=== PATIENT | female | born 1945 | race Caucasian/White ===

== ENCOUNTER → 2016-11-07 | Outpatient (CLI) | payer MEDICARE ==
[~2016-11-07] MED LIST: GADOBUTROL 7.5 MMOL/7.5 ML VIAL IV ONE; LOSA25TA4 PO
--- NOTE | 2016-11-08 08:35 | KCIC ---
PROCEDURE MRI brain without and with contrast. HISTORY Occipital neuralgia on the right side, dull headache with shooting pains on the right side, symptoms for 7 months getting worse TECHNIQUE Multiplanar, multi sequential, pre and post-contrast MR imaging was performed of the head to include dedicated images of the internal auditory canals. Contrast: 5 cc Gadavist COMPARISON None FINDINGS There is mild motion degradation. Ventricles, sulci, cisterns are within normal limits in size and configuration for patient's age. There is no intra-axial mass effect, midline shift, extra-axial fluid collection, or nodular parenchymal or leptomeningeal enhancement. There is moderate T2 and FLAIR hyperintense signal abnormality of the antonio. There is very minimal T2 and FLAIR hyperintense signal abnormality of the supratentorial periventricular white matter, also a few scattered tiny foci of the deep white matter such as of the frontal lobes. There is no significant hemosiderin deposition of the brain parenchyma. There is preservation of the major arterial intracranial flow voids at the skull base. Left vertebral artery flow void is small in caliber. Mastoid air cells are aerated. There is negligible patchy ethmoid air cell mucosal thickening cerebellar tonsils are normal location. There is nonspecific mild heterogeneity of the marrow of non expanded clivus. There is no significant abnormality of the pituitary gland or pineal gland. There is no enhancing mass of the internal auditory canals or cerebellopontine angles. IMPRESSION There is moderate T2 and FLAIR hyperintense signal abnormality of the antonio, very minimally of the supratentorial white matter. Nonspecific findings may be due to chronic microvascular ischemic disease in a patient this age. There is no other significant intracranial abnormality. Electronically signed by: Jonny Bowman MD (Nov 08, 2016 08:33:44)
== END | disposition home or self-care (01) ==
LOC: KCIC MRI 15:51
PROVIDERS: ATTEND Otolaryngology
DX: M54.81 Occipital neuralgia (principal)
CPT/HCPCS: 70553; 82565; A9585

== ENCOUNTER → 2017-05-30 | Outpatient (CLI) | payer MEDICARE ==
[~2017-05-30] MED LIST changes: -GADOBUTROL 7.5 MMOL/7.5 ML VIAL IV ONE
--- NOTE | 2017-05-31 09:34 | KCIC ---
DATE: 05/31/2017 EXAM: MAMMO BALA SCREENING BILATERAL HISTORY: Routine screening COMPARISON: Please mammogram from 04/26/2016 and ultrasound of the right breast from 05/07/2016. FINDINGS: Breast Density: SCATTERED The breast parenchyma shows scattered fibroglandular densities. Breast parenchyma level B. The skin and nipples are within normal limits. Benign left breast calcifications. No suspicious calcifications, spiculated masses or areas of architectural distortion. Interparenchymal lymph node noted in the upper outer right breast. IMPRESSION: No mammographic evidence of malignancy. Stable mammogram. BI-RADS CATEGORY: 2 BENIGN FINDING(S) RECOMMENDED FOLLOW-UP: 12M 12 MONTH FOLLOW-UP PQRS compliance statement: Patient information was entered into a reminder system with a target due date 05/31/2018 for the next mammogram. Mammography is a sensitive method for finding small breast cancers, but it does not detect them all and is not a substitute for careful clinical examination. A negative mammogram does not negate a clinically suspicious finding and should not result in delay in biopsying a clinically suspicious abnormality. "Our facility is accredited by the [employer] Mammography Program."
== END | disposition home or self-care (01) ==
LOC: KCIC MAMMO 12:13
PROVIDERS: ATTEND Obstetrics & Gynecology
DX: Z12.31 Encounter for screening mammogram for malignant neoplasm of breast (principal)
CPT/HCPCS: 77063; G0202; 77067

== ENCOUNTER 2019-06-22 01:26 | Inpatient (IN) | payer MEDICARE ==
[~2019-06-22] VITALS: Ht 152.4 cm; Wt 52.0 kg
[2019-06-22] VITALS (12 sets, daily range): BP systolic 109–144; BP diastolic 56–75
[~2019-06-22 01:26] MED LIST changes: -LOSA25TA4 PO; +LOSA25TA54 PO
[2019-06-22 01:50] LABS: BASO # 0.1 x10^3/uL (0.0-0.2); BASO % 1 % (0-3); EOS # 0.1 x10^3/uL (0.0-0.7); EOS % 1 % (0-3); HEMATOCRIT 46.8 % (36.0-47.0); HEMOGLOBIN 16.1 g/dL (12.0-15.5); LYMPH # 1.6 x10^3/uL (1.0-4.8); LYMPH % 15 % (24-48); MEAN CORPUSCULAR HEMOGLOBIN 33 pg (25-35); MEAN CORPUSCULAR HGB CONC 34 g/dL (31-37); MEAN CORPUSCULAR VOLUME 95 fL (79-100); MONO # 0.6 x10^3/uL (0.0-1.1); MONO % 6 % (0-9); NEUT % 78 % (31-73); PLATELET COUNT 234 x10^3/uL (140-400); RED BLOOD COUNT 4.95 x10^6/uL (3.50-5.40); RED CELL DISTRIBUTION WIDTH 13.5 % (11.5-14.5); WHITE BLOOD COUNT 10.3 x10^3/uL (4.0-11.0)
[2019-06-22 01:56] LABS: BILIRUBIN,URINE NEGATIVE (NEG); CLARITY,URINE CLEAR; COLOR,URINE YELLOW; NITRITE,URINE NEGATIVE (NEG); PROTEIN,URINE NEGATIVE (NEG-TRACE); UROBILINOGEN,URINE 0.2 mg/dL (0.2 mg/dL)
[2019-06-22 02:00] LABS: BACTERIA,URINE 0 /HPF (0-FEW); RBC,URINE 0 /HPF (0-2)
[2019-06-22] MEDS ORDERED: FAMOTIDINE 20 MG/2 ML VIAL IVP ONE (02:00)
[2019-06-22] MEDS ORDERED: KETOROLAC 15 MG/ML VIAL. IVP ONE (02:00)
[2019-06-22] MEDS ORDERED: ONDANSETRON PF 4 MG/2 ML VIAL. IVP ONE (02:00)
[2019-06-22] MEDS ORDERED: IV NORMAL SALINE 1000ML BAG 1,000 ML IV ONE ×2 (02:00→05:00)
[2019-06-22 02:01] LABS: HYALINE CASTS, URINE FEW /HPF; SQUAMOUS EPITHELIAL CELL,UR FEW /LPF
[2019-06-22 02:01] LABS: CALCIUM 10.5 mg/dL (8.5-10.1); CREATININE 0.8 mg/dL (0.6-1.0); GFR 70.5; POTASSIUM 4.1 mmol/L (3.5-5.1)
[2019-06-22 02:09] LABS: ALBUMIN 4.2 g/dL (3.4-5.0); ALBUMIN/GLOBULIN RATIO 1.2 (1.0-1.7); TOTAL BILIRUBIN 1.1 mg/dL (0.2-1.0); TOTAL PROTEIN 7.8 g/dL (6.4-8.2)
[2019-06-22] MEDS ORDERED: CONTRAST GIVEN. MC PRN (02:30)
[2019-06-22] MEDS ORDERED: IOHEXOL 240 MG/ML 50ML VIAL. PO ONE (03:00)
[2019-06-22] MEDS ORDERED: IOHEXOL 300 MG/ML 100ML VIAL. IV ONE (03:00)
--- NOTE | 2019-06-22 03:25 | PHYS DOC ---
Past Medical History Past Medical History: Hypertension Past Surgical History: Tubal ligation Smoking: Cigarettes Alcohol Use: Occasionally Drug Use: None Adult General Chief Complaint Chief Complaint: ABDOMINAL PAIN HPI HPI 73-year-old female presents with right lower abdominal pain and bloating which seems to occur yesterday evening. Patient reports some associated nausea. Denies trauma. Denies fever or chills. Patient reports pain is worse with standing and with ambulation. Reports some improvement with rest. Reports last PO at approximately 1830 last night. Review of Systems Review of Systems Constitutional: Denies fever or chills Eyes: Denies redness or eye pain HENT: Denies nasal congestion or sore throat Respiratory: Denies cough or shortness of breath Cardiovascular: Denies chest pain or palpitations GI: Reports abdominal pain and nausea; denies vomiting : Denies dysuria or hematuria Musculoskeletal: Denies back pain or joint pain Integument: Denies rash or skin lesions Neurologic: Denies headache, focal weakness or sensory changes Complete systems were reviewed and found to be within normal limits, except as documented in this note. Current Medications Current Medications Current Medications Medications (Trade) Dose Ordered Sig/Marlee Start Time Stop Time Status Last Admin Dose Admin Famotidine (Pepcid Vial) 20 mg 1X ONCE 06/22/19 02:00 06/22/19 02:01 DC 06/22/19 02:00 20 MG Info (CONTRAST GIVEN -- Rx MONITORING) 1 each PRN DAILY PRN 06/22/19 02:30 06/24/19 02:29 Iohexol (Omnipaque 240 Mg/ml) 50 ml 1X ONCE 06/22/19 03:00 06/22/19 03:01 DC Iohexol (Omnipaque 300 Mg/ml) 75 ml 1X ONCE 06/22/19 03:00 06/22/19 03:01 Cancel Ketorolac Tromethamine (Toradol 15mg Vial) 10 mg 1X ONCE 06/22/19 02:00 06/22/19 02:01 DC 06/22/19 02:01 10 MG Ondansetron HCl (Zofran) 4 mg 1X ONCE 06/22/19 02:00 06/22/19 02:01 DC 06/22/19 02:01 4 MG Sodium Chloride 1,000 ml @ 1,000 mls/hr 1X ONCE 06/22/19 02:00 06/22/19 02:59 DC 06/22/19 01:58 1,000 MLS/HR Allergies Allergies Allergies Coded Allergies Type Severity Reaction Last Updated Verified No Known Drug Allergies 11/07/16 No Physical Exam Physical Exam Constitutional: Well developed, well nourished, no acute distress, non-toxic appearance HENT: Normocephalic, atraumatic, oropharynx moist Eyes: Conjunctiva normal, no discharge Neck: Normal range of motion, no tenderness, supple Cardiovascular: Heart rate normal, regular rhythm Lungs & Thorax: Bilateral breath sounds clear to auscultation, no wheezing Abdomen: Soft, RLQ tenderness, McBurney positive. negative Psoas sign, no rebound tenderness, mild distention Skin: Warm, dry, no erythema, no rash Back: No tenderness, no CVA tenderness Extremities: No tenderness, ROM intact, no edema Neurologic: Alert and oriented X 3, normal motor function, normal sensory function, no focal deficits noted Psychologic: Affect normal, judgement normal Current Patient Data Vital Signs Vital Signs Date Time Temp Pulse Resp B/P (MAP) Pulse Ox O2 Delivery O2 Flow Rate FiO2 06/22/19 02:30 71 16 172/77 (108) 96 Room Air 06/22/19 02:14 97.8 97.8 Lab Values Laboratory Tests Test 06/22/19 01:31 06/22/19 01:40 Urine Collection Type Unknown Urine Color Yellow Urine Clarity Clear Urine pH 6.0 Urine Specific [place] 1.015 Urine Protein Negative mg/dL (NEG-TRACE) Urine Glucose (UA) Negative mg/dL (NEG) Urine Ketones (Stick) 15 mg/dL (NEG) Urine Blood Negative (NEG) Urine Nitrite Negative (NEG) Urine Bilirubin Negative (NEG) Urine Urobilinogen Dipstick 0.2 mg/dL (0.2 mg/dL) Urine Leukocyte Esterase Trace (NEG) Urine RBC 0 /HPF (0-2) Urine WBC 1-4 /HPF (0-4) Urine Squamous Epithelial Cells Few /LPF Urine Bacteria 0 /HPF (0-FEW) Urine Hyaline Casts Few /HPF Urine Mucus Mod /LPF White Blood Count 10.3 x10^3/uL (4.0-11.0) Red Blood Count 4.95 x10^6/uL (3.50-5.40) Hemoglobin 16.1 g/dL (12.0-15.5) H Hematocrit 46.8 % (36.0-47.0) Mean Corpuscular Volume 95 fL (79-100) Mean Corpuscular Hemoglobin 33 pg (25-35) Mean Corpuscular Hemoglobin Concent 34 g/dL (31-37) Red Cell Distribution Width 13.5 % (11.5-14.5) Platelet Count 234 x10^3/uL (140-400) Neutrophils (%) (Auto) 78 % (31-73) H Lymphocytes (%) (Auto) 15 % (24-48) L Monocytes (%) (Auto) 6 % (0-9) Eosinophils (%) (Auto) 1 % (0-3) Basophils (%) (Auto) 1 % (0-3) Neutrophils # (Auto) 8.0 x10^3/uL (1.8-7.7) H Lymphocytes # (Auto) 1.6 x10^3/uL (1.0-4.8) Monocytes # (Auto) 0.6 x10^3/uL (0.0-1.1) Eosinophils # (Auto) 0.1 x10^3/uL (0.0-0.7) Basophils # (Auto) 0.1 x10^3/uL (0.0-0.2) Sodium Level 144 mmol/L (136-145) Potassium Level 4.1 mmol/L (3.5-5.1) Chloride Level 105 mmol/L (98-107) Carbon Dioxide Level 31 mmol/L (21-32) Anion Gap 8 (6-14) Blood Urea Nitrogen 16 mg/dL (7-20) Creatinine 0.8 mg/dL (0.6-1.0) Estimated GFR (Cockcroft-Gault) 70.5 BUN/Creatinine Ratio 20 (6-20) Glucose Level 113 mg/dL (70-99) H Lactic Acid Level 0.9 mmol/L (0.4-2.0) Calcium Level 10.5 mg/dL (8.5-10.1) H Total Bilirubin 1.1 mg/dL (0.2-1.0) H Aspartate Amino Transferase (AST) 13 U/L (15-37) L Alanine Aminotransferase (ALT) 19 U/L (14-59) Alkaline Phosphatase 81 U/L (46-116) Total Protein 7.8 g/dL (6.4-8.2) Albumin 4.2 g/dL (3.4-5.0) Albumin/Globulin Ratio 1.2 (1.0-1.7) Lipase 134 U/L (73-393) Laboratory Tests 06/22/19 01:40 Laboratory Tests 06/22/19 01:40 EKG EKG [] Radiology/Procedures Radiology/Procedures PROCEDURE: CT ABD PEL W/ORAL CONTRST ONLY Abdominal and Pelvis CT, Without Contrast: History: Right lower quadrant pain Comparison: None. Procedure: Axial images are obtained of the abdomen and pelvis, without IV or oral contrast. Oral Contrast: Yes Findings: Evaluation of solid organs is limited without contrast. Evaluation of stomach and bowel is limited without oral contrast. The appendix is dilated to 8 mm and does not opacify with oral contrast. Contrast however is seen in the colon to the splenic flexure. Liver: Normal. Spleen: Normal. Pancreas: Normal. Adrenal Glands: Mild thickening of the left adrenal is likely incidental. Kidneys: Prominence the renal pelvises bilaterally is likely extrarenal pelvises. There are small bilateral renal cysts as well. There is no free air or free fluid. There is no lymphadenopathy. The urinary bladder appears normal. There is no pericolonic inflammation identified. Impression: Mildly dilated appendix without opacification with oral contrast. Findings suggest early acute appendicitis. Clinical correlation is suggested. The appendix is seen inferior to the cecum in the lower pelvis just to the right of the dome of the urinary bladder. End impression PQRS Compliance Statement: One or more of the following individualized dose reduction techniques were utilized for this examination: 1. Automated exposure control 2. Adjustment of the mA and/or kV according to patient size 3. Use of iterative reconstruction technique Electronically signed by: Vazquez Thompson III, MD (06/22/2019 4:06 AM) [facility] Course & Med Decision Making Course & Med Decision Making Pertinent Labs and Imaging studies reviewed. (See chart for details) Patient presents with right lower quadrant abdominal pain with associated nausea. Last by mouth at 1830 yesterday evening. Pain/nausea addressed. IV fluid hydration provided. Labs obtained and posted to chart. CT abdomen/pelvis with findings concerning for acute appendicitis. Empiric antibiotic initiated. Patient requiring admission for further evaluation and treatment. Discussed case with Dr. Hodge (general surgery) who requests admission under hospitalist. Discussed with Dr. Cotto (hospitalist) who is in agreement with admission. Discussed findings and plan with patient and family, who acknowledge understanding and agreement. Dragon Disclaimer Dragon Disclaimer This electronic medical record was generated, in whole or in part, using a voice recognition dictation system. Departure Departure Impression: Primary Impression: Acute appendicitis Disposition: ADMITTED INPATIENT Admitting Physician: DAPHNIE (Kirti) Condition: STABLE Referrals: CONCETTA HAMMER MD (PCP) Critical Care Time Critical care time was 30 minutes which includes time at bedside, spent in discussion of patient's care with specialists and/or family members, with interpretation of laboratory and/or radiological studies and is exclusive of procedures. Problem Qualifiers Primary Impression: Acute appendicitis Acute appendicitis type: unspecified acute appendicitis type Qualified Codes: K35.80 - Unspecified acute appendicitis NEEL GRAY DO Jun 22, 2019 03:25
--- NOTE | 2019-06-22 04:10 | RAD ---
Abdominal and Pelvis CT, Without Contrast: History: Right lower quadrant pain Comparison: None. Procedure: Axial images are obtained of the abdomen and pelvis, without IV or oral contrast. Oral Contrast: Yes Findings: Evaluation of solid organs is limited without contrast. Evaluation of stomach and bowel is limited without oral contrast. The appendix is dilated to 8 mm and does not opacify with oral contrast. Contrast however is seen in the colon to the splenic flexure. Liver: Normal. Spleen: Normal. Pancreas: Normal. Adrenal Glands: Mild thickening of the left adrenal is likely incidental. Kidneys: Prominence the renal pelvises bilaterally is likely extrarenal pelvises. There are small bilateral renal cysts as well. There is no free air or free fluid. There is no lymphadenopathy. The urinary bladder appears normal. There is no pericolonic inflammation identified. Impression: Mildly dilated appendix without opacification with oral contrast. Findings suggest early acute appendicitis. Clinical correlation is suggested. The appendix is seen inferior to the cecum in the lower pelvis just to the right of the dome of the urinary bladder. End impression PQRS Compliance Statement: One or more of the following individualized dose reduction techniques were utilized for this examination: 1. Automated exposure control 2. Adjustment of the mA and/or kV according to patient size 3. Use of iterative reconstruction technique Electronically signed by: Vazquez Thompson III, MD (06/22/2019 4:06 AM) [facility]
[2019-06-22] MEDS ORDERED: ONDANSETRON PF 4 MG/2 ML VIAL. IV PRN ×2 (04:30→08:30)
[2019-06-22] MEDS ORDERED: PIPERACILLIN/TAZOBACTAM 3.375 GM in IV NORMAL SALINE 50ML 50 ML IV ONE ×2 (05:00→13:30)
[2019-06-22] MEDS: fentaNYL PF VIAL 100 MCG/2 ML VIAL IV PRN ×3 (05:40→10:46)
[2019-06-22] MEDS ORDERED: LOSA1TAB25 PO (05:58)
--- NOTE | 2019-06-22 08:11 | PDOC2 ---
GENEVA LAM REHABILITATION TEACHER 06/22/19 0811: CONSULT Date of Consult Date of Consult DATE: 06/22/19 TIME: 08:08 Reason for Consult Reason for Consult: acute appendicitis Referring Physician Referring Physician: ER Identification/Chief Complaint Chief Complaint abdominal pain Source Source: Chart review, Patient History of Present Illness Reason for Visit: Acute onset of lower abdominal pain yesterday evening. Settled to RLQ, feels like bladder pain. Does radiate to right flank. Associated nausea. No constipation or diarrhea. No similar pain in past Past Medical History Cardiovascular: HTN Past Surgical History Past Surgical History: No pertinent history Family History Family History: Other (noncontributory to current illness ) Social History 1 pack per day ALCOHOL: social Drugs: None Lives: with Family Current Problem List Problem List Problems Medical Problems: (1) Acute appendicitis Status: Acute Current Medications Current Medications Current Medications Sodium Chloride 1,000 ml @ 1,000 mls/hr 1X ONCE IV Last administered on 06/22/19at 01:58; Start 06/22/19 at 02:00; Stop 06/22/19 at 02:59; Status DC Ketorolac Tromethamine (Toradol 15mg Vial) 10 mg 1X ONCE IVP Last administered on 06/22/19at 02:01; Start 06/22/19 at 02:00; Stop 06/22/19 at 02:01; Status DC Ondansetron HCl (Zofran) 4 mg 1X ONCE IVP Last administered on 06/22/19at 02:01; Start 06/22/19 at 02:00; Stop 06/22/19 at 02:01; Status DC Famotidine (Pepcid Vial) 20 mg 1X ONCE IVP Last administered on 06/22/19at 02:00; Start 06/22/19 at 02:00; Stop 06/22/19 at 02:01; Status DC Iohexol (Omnipaque 240 Mg/ml) 50 ml 1X ONCE PO ; Start 06/22/19 at 03:00; Stop 06/22/19 at 03:01; Status DC Iohexol (Omnipaque 300 Mg/ml) 75 ml 1X ONCE IV ; Start 06/22/19 at 03:00; Stop 06/22/19 at 03:01; Status Cancel Info (CONTRAST GIVEN -- Rx MONITORING) 1 each PRN DAILY PRN MC SEE COMMENTS; Start 06/22/19 at 02:30; Stop 06/24/19 at 02:29 Ondansetron HCl (Zofran) 4 mg PRN Q8HRS PRN IV NAUSEA/VOMITING 1ST CHOICE; Start 06/22/19 at 04:30; Stop 06/23/19 at 04:29 Fentanyl Citrate (Fentanyl 2ml Vial) 50 mcg PRN Q2HRS PRN IV SEVERE PAIN 7-10 Last administered on 06/22/19at 05:40; Start 06/22/19 at 04:30 Sodium Chloride 1,000 ml @ 100 mls/hr 1X ONCE IV Last administered on 06/22/19at 05:40; Start 06/22/19 at 05:00; Stop 06/22/19 at 14:59 Piperacillin Sod/ Tazobactam Sod 3.375 gm/Sodium Chloride 50 ml @ 100 mls/hr 1X ONCE IV Last administered on 06/22/19at 06:02; Start 06/22/19 at 05:00; Stop 06/22/19 at 05:29; Status DC Active Scripts Active Reported Losartan-Hctz 100-12.5 Mg Tab (Losartan/Hydrochlorothiazide) 1 Each Tablet 1 Tab PO DAILY Allergies Allergies: Coded Allergies: No Known Drug Allergies (Unverified , 06/22/19) ROS General: No: Chills, Other (fevers ) PSYCHOLOGICAL ROS: No: Anxiety, Depression Eyes: No Blurry vision HEENT: No: Heacaches, Sore Throat Hematological and Lymphatic: No: Bleeding Problems, Blood Clots Respiratory: No: Cough, Shortness of breath Cardiovascular: No Chest Pain, No Palpitations Gastrointestinal: Yes Other (see hpi) Genitourinary: No Dysuria, No Hematuria Musculoskeletal: No Muscular Weakness Neurological: No Impaired Coord/balance, No Numbness/Tingling Skin: No Pruritus, No Rash Physical Exam General: Alert, Oriented X3, Cooperative, No acute distress HEENT: PERRLA, Mucous membr. moist/pink Lungs: Clear to auscultation, Normal air movement Heart: Regular rate, Normal S1, Normal S2, No murmurs Abdomen: Soft, Other (TTP RLQ) Extremities: No clubbing, No cyanosis Skin: No rashes, No breakdown Neuro: Normal gait, Normal speech Psych/Mental Status: Mental status NL, Mood NL MUSCULOSKELETAL: No deformity, No swelling Vitals VITALS Vital Signs Date Time Temp Pulse Resp B/P (MAP) Pulse Ox O2 Delivery O2 Flow Rate FiO2 06/22/19 04:55 97.9 76 18 131/75 (93) 96 Room Air 97.9 Labs Labs Laboratory Tests Test 06/22/19 01:31 06/22/19 01:40 Urine Collection Type Unknown Urine Color Yellow Urine Clarity Clear Urine pH 6.0 Urine Specific [place] 1.015 Urine Protein Negative mg/dL (NEG-TRACE) Urine Glucose (UA) Negative mg/dL (NEG) Urine Ketones (Stick) 15 mg/dL (NEG) Urine Blood Negative (NEG) Urine Nitrite Negative (NEG) Urine Bilirubin Negative (NEG) Urine Urobilinogen Dipstick 0.2 mg/dL (0.2 mg/dL) Urine Leukocyte Esterase Trace (NEG) Urine RBC 0 /HPF (0-2) Urine WBC 1-4 /HPF (0-4) Urine Squamous Epithelial Cells Few /LPF Urine Bacteria 0 /HPF (0-FEW) Urine Hyaline Casts Few /HPF Urine Mucus Mod /LPF White Blood Count 10.3 x10^3/uL (4.0-11.0) Red Blood Count 4.95 x10^6/uL (3.50-5.40) Hemoglobin 16.1 g/dL (12.0-15.5) Hematocrit 46.8 % (36.0-47.0) Mean Corpuscular Volume 95 fL (79-100) Mean Corpuscular Hemoglobin 33 pg (25-35) Mean Corpuscular Hemoglobin Concent 34 g/dL (31-37) Red Cell Distribution Width 13.5 % (11.5-14.5) Platelet Count 234 x10^3/uL (140-400) Neutrophils (%) (Auto) 78 % (31-73) Lymphocytes (%) (Auto) 15 % (24-48) Monocytes (%) (Auto) 6 % (0-9) Eosinophils (%) (Auto) 1 % (0-3) Basophils (%) (Auto) 1 % (0-3) Neutrophils # (Auto) 8.0 x10^3/uL (1.8-7.7) Lymphocytes # (Auto) 1.6 x10^3/uL (1.0-4.8) Monocytes # (Auto) 0.6 x10^3/uL (0.0-1.1) Eosinophils # (Auto) 0.1 x10^3/uL (0.0-0.7) Basophils # (Auto) 0.1 x10^3/uL (0.0-0.2) Sodium Level 144 mmol/L (136-145) Potassium Level 4.1 mmol/L (3.5-5.1) Chloride Level 105 mmol/L (98-107) Carbon Dioxide Level 31 mmol/L (21-32) Anion Gap 8 (6-14) Blood Urea Nitrogen 16 mg/dL (7-20) Creatinine 0.8 mg/dL (0.6-1.0) Estimated GFR (Cockcroft-Gault) 70.5 BUN/Creatinine Ratio 20 (6-20) Glucose Level 113 mg/dL (70-99) Lactic Acid Level 0.9 mmol/L (0.4-2.0) Calcium Level 10.5 mg/dL (8.5-10.1) Total Bilirubin 1.1 mg/dL (0.2-1.0) Aspartate Amino Transf (AST/SGOT) 13 U/L (15-37) Alanine Aminotransferase (ALT/SGPT) 19 U/L (14-59) Alkaline Phosphatase 81 U/L (46-116) Total Protein 7.8 g/dL (6.4-8.2) Albumin 4.2 g/dL (3.4-5.0) Albumin/Globulin Ratio 1.2 (1.0-1.7) Lipase 134 U/L (73-393) Laboratory Tests Test 06/22/19 01:31 06/22/19 01:40 Urine Collection Type Unknown Urine Color Yellow Urine Clarity Clear Urine pH 6.0 Urine Specific [place] 1.015 Urine Protein Negative mg/dL (NEG-TRACE) Urine Glucose (UA) Negative mg/dL (NEG) Urine Ketones (Stick) 15 mg/dL (NEG) Urine Blood Negative (NEG) Urine Nitrite Negative (NEG) Urine Bilirubin Negative (NEG) Urine Urobilinogen Dipstick 0.2 mg/dL (0.2 mg/dL) Urine Leukocyte Esterase Trace (NEG) Urine RBC 0 /HPF (0-2) Urine WBC 1-4 /HPF (0-4) Urine Squamous Epithelial Cells Few /LPF Urine Bacteria 0 /HPF (0-FEW) Urine Hyaline Casts Few /HPF Urine Mucus Mod /LPF White Blood Count 10.3 x10^3/uL (4.0-11.0) Red Blood Count 4.95 x10^6/uL (3.50-5.40) Hemoglobin 16.1 g/dL (12.0-15.5) Hematocrit 46.8 % (36.0-47.0) Mean Corpuscular Volume 95 fL (79-100) Mean Corpuscular Hemoglobin 33 pg (25-35) Mean Corpuscular Hemoglobin Concent 34 g/dL (31-37) Red Cell Distribution Width 13.5 % (11.5-14.5) Platelet Count 234 x10^3/uL (140-400) Neutrophils (%) (Auto) 78 % (31-73) Lymphocytes (%) (Auto) 15 % (24-48) Monocytes (%) (Auto) 6 % (0-9) Eosinophils (%) (Auto) 1 % (0-3) Basophils (%) (Auto) 1 % (0-3) Neutrophils # (Auto) 8.0 x10^3/uL (1.8-7.7) Lymphocytes # (Auto) 1.6 x10^3/uL (1.0-4.8) Monocytes # (Auto) 0.6 x10^3/uL (0.0-1.1) Eosinophils # (Auto) 0.1 x10^3/uL (0.0-0.7) Basophils # (Auto) 0.1 x10^3/uL (0.0-0.2) Sodium Level 144 mmol/L (136-145) Potassium Level 4.1 mmol/L (3.5-5.1) Chloride Level 105 mmol/L (98-107) Carbon Dioxide Level 31 mmol/L (21-32) Anion Gap 8 (6-14) Blood Urea Nitrogen 16 mg/dL (7-20) Creatinine 0.8 mg/dL (0.6-1.0) Estimated GFR (Cockcroft-Gault) 70.5 BUN/Creatinine Ratio 20 (6-20) Glucose Level 113 mg/dL (70-99) Lactic Acid Level 0.9 mmol/L (0.4-2.0) Calcium Level 10.5 mg/dL (8.5-10.1) Total Bilirubin 1.1 mg/dL (0.2-1.0) Aspartate Amino Transf (AST/SGOT) 13 U/L (15-37) Alanine Aminotransferase (ALT/SGPT) 19 U/L (14-59) Alkaline Phosphatase 81 U/L (46-116) Total Protein 7.8 g/dL (6.4-8.2) Albumin 4.2 g/dL (3.4-5.0) Albumin/Globulin Ratio 1.2 (1.0-1.7) Lipase 134 U/L (73-393) Assessment/Plan Assessment/Plan acute appendicitis plan lap appy today KATHLEEN CLARK MD 06/22/19 1442: CONSULT Assessment/Plan Assessment/Plan Pt seen and examined by myself: 73 year old female with abdominal pain beginning yesterday, started in RLQ, non radiation, some associated nausea, no vomiting, nonradiating. PMH/PSH/ROS/SH as above: exam: alert, oriented, mildly uncomfortable, no scleral icterus, lungs clear, heart RR and R, abdomen soft, tender in RLQ with palpation, no masses, extremities neg for edema; labs and CT reviewed. A/P) RLQ pain, suspect appendicitis, recommend laparoscopy. The details and risks of surgery were discussed with the patient. She understands and would like to proceed. GENEVA LAM APRN Jun 22, 2019 08:11 KATHLEEN CLARK MD Jun 22, 2019 14:42
[2019-06-22] MEDS ORDERED: IV RINGERS,LACTATED 1000ML 1,000 ML IV SCH (08:23)
[2019-06-22] MEDS ORDERED: HYDROmorphone 2 MG/ML VIAL IV PRN (08:30)
[2019-06-22] MEDS ORDERED: PROCHLORPERAZINE 10 MG/2 ML VIAL. IV PRN ×2 (08:30→12:45)
[2019-06-22] MEDS ORDERED: BUPIVACAINE-EPI 0.5%-1:200000 MPF 30 ML VIAL. INJ ONE (08:30)
[2019-06-22] MEDS ORDERED: fentaNYL PF VIAL 100 MCG/2 ML VIAL IV PRN ×2 (08:30)
[2019-06-22] MEDS ORDERED: SCOPOLAMINE 1.5MG PATCH. TD ONE ×2 (09:00→12:51)
--- NOTE | 2019-06-22 09:20 | NUR ---
SW following for discharge planning. Chart reviewed, discussed with RN. Pt is from home with , [place] [address] [place] so is very active. Pt having surgery today. RN advised no SW needs at this time. SW will continue to follow.
[2019-06-22] MEDS ORDERED: LIDOCAINE 2% PF 5 ML VIAL. ONE (12:36)
[2019-06-22] MEDS ORDERED: PROPOFOL 20 ML IV ONE (12:36)
[2019-06-22] MEDS ORDERED: ONDANSETRON PF 4 MG/2 ML VIAL. ONE (12:36)
[2019-06-22] MEDS ORDERED: DEXAMETHASONE SOD PHOS 4 MG/ML VIAL ONE (12:36)
[2019-06-22] MEDS ORDERED: FAMOTIDINE 20 MG/2 ML VIAL ONE (12:36)
[2019-06-22] MEDS ORDERED: ROCURONIUM 50 MG/5 ML VIAL. ONE (12:36)
--- NOTE | 2019-06-22 12:47 | PDOC1 ---
History and Physical Date of Admission Date of Admission DATE: 06/22/19 TIME: 12:31 Identification/Chief Complaint Chief Complaint Abdominal pain Source Source: Patient History of Present Illness History of Present Illness Ms So is a 73-year-old female w/ PMHx HTN, smoker who presents with right lower abdominal pain and bloating which seems to occur yesterday evening. Patient reports some associated nausea. Denies trauma. Denies fever or chills. Patient reports pain is worse with standing and with ambulation. Reports some improvement with rest. Reports last PO at approximately 1830 last night. Pain radiates from umbilicus to RLQ. CT abdomen with concern for early appendicitis. Past Medical History Cardiovascular: HTN Past Surgical History Past Surgical History: Tubal Ligation Family History Family History: Coronary Artery Disease (Mother, Brother), Other (noncontributory to current illness ) Social History Smoke: 1 pack per day ALCOHOL: social Drugs: None Current Problem List Problem List Problems Medical Problems: (1) Acute appendicitis Status: Acute Current Medications Current Medications Current Medications Sodium Chloride 1,000 ml @ 1,000 mls/hr 1X ONCE IV Last administered on 06/22/19at 01:58; Start 06/22/19 at 02:00; Stop 06/22/19 at 02:59; Status DC Ketorolac Tromethamine (Toradol 15mg Vial) 10 mg 1X ONCE IVP Last administered on 06/22/19at 02:01; Start 06/22/19 at 02:00; Stop 06/22/19 at 02:01; Status DC Ondansetron HCl (Zofran) 4 mg 1X ONCE IVP Last administered on 06/22/19at 02:01; Start 06/22/19 at 02:00; Stop 06/22/19 at 02:01; Status DC Famotidine (Pepcid Vial) 20 mg 1X ONCE IVP Last administered on 06/22/19at 02:00; Start 06/22/19 at 02:00; Stop 06/22/19 at 02:01; Status DC Iohexol (Omnipaque 240 Mg/ml) 50 ml 1X ONCE PO ; Start 06/22/19 at 03:00; S top 06/22/19 at 03:01; Status DC Iohexol (Omnipaque 300 Mg/ml) 75 ml 1X ONCE IV ; Start 06/22/19 at 03:00; Stop 06/22/19 at 03:01; Status Cancel Info (CONTRAST GIVEN -- Rx MONITORING) 1 each PRN DAILY PRN MC SEE COMMENTS; Start 06/22/19 at 02:30; Stop 06/24/19 at 02:29 Ondansetron HCl (Zofran) 4 mg PRN Q8HRS PRN IV NAUSEA/VOMITING 1ST CHOICE Last administered on 06/22/19at 11:27; Start 06/22/19 at 04:30; Stop 06/23/19 at 04:29 Fentanyl Citrate (Fentanyl 2ml Vial) 50 mcg PRN Q2HRS PRN IV SEVERE PAIN 7-10 Last administered on 06/22/19at 10:46; Start 06/22/19 at 04:30 Sodium Chloride 1,000 ml @ 100 mls/hr 1X ONCE IV Last administered on 06/22/19at 05:40; Start 06/22/19 at 05:00; Stop 06/22/19 at 14:59 Piperacillin Sod/ Tazobactam Sod 3.375 gm/Sodium Chloride 50 ml @ 100 mls/hr 1X ONCE IV Last administered on 06/22/19at 06:02; Start 06/22/19 at 05:00; Stop 06/22/19 at 05:29; Status DC Ondansetron HCl (Zofran) 4 mg PRN Q6HRS PRN IV NAUSEA/VOMITING; Start 06/22/19 at 08:30; Stop 06/23/19 at 08:29 Fentanyl Citrate (Fentanyl 2ml Vial) 25 mcg PRN Q5MIN PRN IV MILD PAIN 1-3; Start 06/22/19 at 08:30; Stop 06/23/19 at 08:29 Fentanyl Citrate (Fentanyl 2ml Vial) 50 mcg PRN Q5MIN PRN IV MODERATE TO SEVERE PAIN; Start 06/22/19 at 08:30; Stop 06/23/19 at 08:29 Morphine Sulfate (Morphine Sulfate) 1 mg PRN Q10MIN PRN IV SEVERE PAIN 7-10; Start 06/22/19 at 08:30; Stop 06/23/19 at 08:29 Ringer's Solution 1,000 ml @ 30 mls/hr Q24H IV ; Start 06/22/19 at 08:23; Stop 06/22/19 at 20:22 Hydromorphone HCl (Dilaudid) 0.5 mg PRN Q10MIN PRN IV SEV PAIN, Second choice; Start 06/22/19 at 08:30; Stop 06/23/19 at 08:29 Prochlorperazine Edisylate (Compazine) 5 mg PACU PRN PRN IV NAUSEA, MRX1; Start 06/22/19 at 08:30; Stop 06/23/19 at 08:29 Bupivacaine HCl/ Epinephrine Bitart (Sensorcain-Epi 0.5%-1:[id number] Mpf) 30 ml 1X ONCE INJ ; Start 06/22/19 at 08:30; Stop 06/22/19 at 08:31; Status DC Active Scripts Active Reported Losartan-Hctz 100-12.5 Mg Tab (Losartan/Hydrochlorothiazide) 1 Each Tablet 1 Tab PO DAILY Allergies Allergies: Coded Allergies: No Known Drug Allergies (Unverified , 06/22/19) ROS General: YES: Fatigue, Malaise, Appetite; No: Chills, Night Sweats, Other PSYCHOLOGICAL ROS: No: Anxiety, Behavioral Disorder, Concentration difficultie, Decreased libido, Depression, Disorientation, Hallucinations, Hostility, Irritablity, Memory difficulties, Mood Swings, Obsessive thoughts, Physical abuse, Sexual abuse, Sleep disturbances, Suicidal ideation, Other Eyes: No Blurry vision, No Decreased vision, No Double vision, No Dry eyes, No Excessive tearing, No Eye Pain, No Itchy Eyes, No Loss of vision, No Photophobia, No Scotomata, No Uses contacts, No Uses glasses, No Other HEENT: No: Heacaches, Visual Changes, Hearing change, Nasal congestion, Nasal discharge, Oral lesions, Sinus pain, Sore Throat, Epistaxis, Sneezing, Snoring, Tinnitus, Vertigo, Vocal changes, Other ALLERGY AND IMMUNOLOGY: No: Hives, Insect Bite Sensitivity, Itchy/Watery Eyes, Nasal Congestion, Post Nasal Drip, Seasonal Allergies, Other Hematological and Lymphatic: No: Bleeding Problems, Blood Clots, Blood Transfusions, Brusing, Night Sweats, Pallor, Swollen Lymph Nodes, Other ENDOCRINE: No: Breast Changes, Galactorrhea, Hair Pattern Changes, Hot Flashes, Malaise/lethargy, Mood Swings, Palpitations, Polydipsia/polyuria, Skin Changes, Temperature Intolerance, Unexpected Weight Changes, Other Breast: No New/Changing Breast Lumps, No Nipple changes, No Nipple discharge, N o Other Respiratory: No: Cough, Hemoptysis, Orthopnea, Pleuritic Pain, Shortness of breath, SOB with excertion, Sputum Changes, Stridor, Tachypnea, Wheezing, Other Cardiovascular: No Chest Pain, No Palpitations, No Orthopnea, No Paroxysmal Noc. Dyspnea, No Edema, No Lt Headedness, No Other Gastrointestinal: Yes Nausea, Yes Vomiting, Yes Abdominal Pain; No Diarrhea, No Constipation, No Melena, No Hematochezia, No Other Genitourinary: No Dysuria, No Frequency, No Incontinence, No Hematuria, No Retention, No Discharge, No Urgency, No Pain, No Flank Pain, No Other, No , No , No , No , No , No , No Musculoskeletal: No Gait Disturbance, No Joint Pain, No Joint Stiffness, No Joint Swelling, No Muscle Pain, No Muscular Weakness, No Pain In:, No Swelling In:, No Other Neurological: No Behavorial Changes, No Bowel/Bladder ControlChng, No Confusion, No Dizziness, No Gait Disturbance, No Headaches, No Impaired Coord/balance, No Memory Loss, No Numbness/Tingling, No Seizures, No Speech Problems, No Tremors, No Visual Changes, No Weakness, No Other Skin: No Dry Skin, No Eczema, No Hair Changes, No Lumps, No Mole Changes, No Mottling, No Nail Changes, No Pruritus, No Rash, No Skin Lesion Changes, No Other, No Acne Physical Exam General: Alert, Oriented X3, Cooperative, No acute distress HEENT: Atraumatic, PERRLA, EOMI, Mucous membr. moist/pink Lungs: Clear to auscultation, Normal air movement Heart: S1S2, RRR, no thrills, no rubs, no gallops, no murmurs Abdomen: Normal bowel sounds, Soft, No hepatosplenomegaly, No masses, Other (RLQ pain) Rectal Exam: not examined Extremities: No clubbing, No cyanosis, No edema, Normal pulses, No tenderness/swelling Skin: No rashes, No breakdown, No significant lesion Neuro: Normal gait, Normal speech, Strength at 5/5 X4 ext, Normal tone, Sensation intact, Cranial nerves 3-12 NL, Reflexes 2+ Psych/Mental Status: Mental status NL, Mood NL Vitals Vitals Vital Signs Date Time Temp Pulse Resp B/P (MAP) Pulse Ox O2 Delivery O2 Flow Rate FiO2 06/22/19 11:16 94 06/22/19 10:46 Room Air 06/22/19 07:00 98.5 85 18 123/59 (80) 98.5 Labs Labs Laboratory Tests Test 06/22/19 01:31 06/22/19 01:40 Urine Collection Type Unknown Urine Color Yellow Urine Clarity Clear Urine pH 6.0 Urine Specific Mcintire 1.015 Urine Protein Negative mg/dL (NEG-TRACE) Urine Glucose (UA) Negative mg/dL (NEG) Urine Ketones (Stick) 15 mg/dL (NEG) Urine Blood Negative (NEG) Urine Nitrite Negative (NEG) Urine Bilirubin Negative (NEG) Urine Urobilinogen Dipstick 0.2 mg/dL (0.2 mg/dL) Urine Leukocyte Esterase Trace (NEG) Urine RBC 0 /HPF (0-2) Urine WBC 1-4 /HPF (0-4) Urine Squamous Epithelial Cells Few /LPF Urine Bacteria 0 /HPF (0-FEW) Urine Hyaline Casts Few /HPF Urine Mucus Mod /LPF White Blood Count 10.3 x10^3/uL (4.0-11.0) Red Blood Count 4.95 x10^6/uL (3.50-5.40) Hemoglobin 16.1 g/dL (12.0-15.5) Hematocrit 46.8 % (36.0-47.0) Mean Corpuscular Volume 95 fL (79-100) Mean Corpuscular Hemoglobin 33 pg (25-35) Mean Corpuscular Hemoglobin Concent 34 g/dL (31-37) Red Cell Distribution Width 13.5 % (11.5-14.5) Platelet Count 234 x10^3/uL (140-400) Neutrophils (%) (Auto) 78 % (31-73) Lymphocytes (%) (Auto) 15 % (24-48) Monocytes (%) (Auto) 6 % (0-9) Eosinophils (%) (Auto) 1 % (0-3) Basophils (%) (Auto) 1 % (0-3) Neutrophils # (Auto) 8.0 x10^3/uL (1.8-7.7) Lymphocytes # (Auto) 1.6 x10^3/uL (1.0-4.8) Monocytes # (Auto) 0.6 x10^3/uL (0.0-1.1) Eosinophils # (Auto) 0.1 x10^3/uL (0.0-0.7) Basophils # (Auto) 0.1 x10^3/uL (0.0-0.2) Sodium Level 144 mmol/L (136-145) Potassium Level 4.1 mmol/L (3.5-5.1) Chloride Level 105 mmol/L (98-107) Carbon Dioxide Level 31 mmol/L (21-32) Anion Gap 8 (6-14) Blood Urea Nitrogen 16 mg/dL (7-20) Creatinine 0.8 mg/dL (0.6-1.0) Estimated GFR (Cockcroft-Gault) 70.5 BUN/Creatinine Ratio 20 (6-20) Glucose Level 113 mg/dL (70-99) Lactic Acid Level 0.9 mmol/L (0.4-2.0) Calcium Level 10.5 mg/dL (8.5-10.1) Total Bilirubin 1.1 mg/dL (0.2-1.0) Aspartate Amino Transf (AST/SGOT) 13 U/L (15-37) Alanine Aminotransferase (ALT/SGPT) 19 U/L (14-59) Alkaline Phosphatase 81 U/L (46-116) Total Protein 7.8 g/dL (6.4-8.2) Albumin 4.2 g/dL (3.4-5.0) Albumin/Globulin Ratio 1.2 (1.0-1.7) Lipase 134 U/L (73-393) Laboratory Tests Test 06/22/19 01:31 06/22/19 01:40 Urine Collection Type Unknown Urine Color Yellow Urine Clarity Clear Urine pH 6.0 Urine Specific Mcintire 1.015 Urine Protein Negative mg/dL (NEG-TRACE) Urine Glucose (UA) Negative mg/dL (NEG) Urine Ketones (Stick) 15 mg/dL (NEG) Urine Blood Negative (NEG) Urine Nitrite Negative (NEG) Urine Bilirubin Negative (NEG) Urine Urobilinogen Dipstick 0.2 mg/dL (0.2 mg/dL) Urine Leukocyte Esterase Trace (NEG) Urine RBC 0 /HPF (0-2) Urine WBC 1-4 /HPF (0-4) Urine Squamous Epithelial Cells Few /LPF Urine Bacteria 0 /HPF (0-FEW) Urine Hyaline Casts Few /HPF Urine Mucus Mod /LPF White Blood Count 10.3 x10^3/uL (4.0-11.0) Red Blood Count 4.95 x10^6/uL (3.50-5.40) Hemoglobin 16.1 g/dL (12.0-15.5) Hematocrit 46.8 % (36.0-47.0) Mean Corpuscular Volume 95 fL (79-100) Mean Corpuscular Hemoglobin 33 pg (25-35) Mean Corpuscular Hemoglobin Concent 34 g/dL (31-37) Red Cell Distribution Width 13.5 % (11.5-14.5) Platelet Count 234 x10^3/uL (140-400) Neutrophils (%) (Auto) 78 % (31-73) Lymphocytes (%) (Auto) 15 % (24-48) Monocytes (%) (Auto) 6 % (0-9) Eosinophils (%) (Auto) 1 % (0-3) Basophils (%) (Auto) 1 % (0-3) Neutrophils # (Auto) 8.0 x10^3/uL (1.8-7.7) Lymphocytes # (Auto) 1.6 x10^3/uL (1.0-4.8) Monocytes # (Auto) 0.6 x10^3/uL (0.0-1.1) Eosinophils # (Auto) 0.1 x10^3/uL (0.0-0.7) Basophils # (Auto) 0.1 x10^3/uL (0.0-0.2) Sodium Level 144 mmol/L (136-145) Potassium Level 4.1 mmol/L (3.5-5.1) Chloride Level 105 mmol/L (98-107) Carbon Dioxide Level 31 mmol/L (21-32) Anion Gap 8 (6-14) Blood Urea Nitrogen 16 mg/dL (7-20) Creatinine 0.8 mg/dL (0.6-1.0) Estimated GFR (Cockcroft-Gault) 70.5 BUN/Creatinine Ratio 20 (6-20) Glucose Level 113 mg/dL (70-99) Lactic Acid Level 0.9 mmol/L (0.4-2.0) Calcium Level 10.5 mg/dL (8.5-10.1) Total Bilirubin 1.1 mg/dL (0.2-1.0) Aspartate Amino Transf (AST/SGOT) 13 U/L (15-37) Alanine Aminotransferase (ALT/SGPT) 19 U/L (14-59) Alkaline Phosphatase 81 U/L (46-116) Total Protein 7.8 g/dL (6.4-8.2) Albumin 4.2 g/dL (3.4-5.0) Albumin/Globulin Ratio 1.2 (1.0-1.7) Lipase 134 U/L (73-393) Images Images CT abdomen - Mildly dilated appendix without opacification with oral contrast. Findings suggest early acute appendicitis. Clinical correlation is suggested. The appendix is seen inferior to the cecum in the lower pelvis just to the right of the dome of the urinary bladder. VTE Prophylaxis Ordered VTE Prophylaxis Devices: Yes VTE Pharmacological Prophylaxi: Yes Assessment/Plan Assessment/Plan A/P: Abdominal pain - looks to be early appendicitis. Given empiric antibiotics, pain control. Surgery consulted. Only previously had a flex sig and has been using cologard. No colonoscopy previously. No further testing prior to appendectomy Hypercalcemia - 10.5. Will give IVF. Repeat labs in AM. Hold thiazide diuretic for now HTN - hold thiazide, cont losartan FEN - NPO PPX - lovenox post op FULL CODE Dispo - inpatient for acute appendicitis MIGUEL LYNN MD Jun 22, 2019 12:46
[2019-06-22] MEDS: LOSARTAN POTASSIUM 50 MG TABLET. PO SCH (13:00)
[2019-06-22] MEDS ORDERED: SUCCINYLCHOLINE 200 MG/10 ML VIAL. ONE (13:50)
[2019-06-22] MEDS ORDERED: ePHEDrine PF IN SALINE 50 MG/10 ML SYRINGE. IV ONE (14:07)
[2019-06-22] MEDS ORDERED: fentaNYL PF VIAL 100 MCG/2 ML VIAL ONE (14:13)
[2019-06-22] MEDS ORDERED: NEOSTIGMINE METHYLSULFATE 5 MG/5 ML SYRINGE. ONE (14:35)
[2019-06-22] MEDS ORDERED: GLYCOPYRROLATE 1 MG/5 ML VIAL. ONE (14:35)
--- NOTE | 2019-06-22 14:43 | PDOC4 ---
Operative Note Operative Note Preoperative Diagnosis: Acute Appendicitis Postoperative Diagnosis: Same Procedure: Laparoscopic appendectomy Surgeon: Francisco Anesthesia: Gen. EBL: 10 mL Specimen: Appendix to pathology Drains: None Complications: None Indication: The patient is a 81-year-old female who reported to the emergency department with abdominal pain. The evaluation is consistent with acute appendicitis. The patient was offered surgical treatment with a laparoscopic appendectomy. The risks of surgery were discussed which include bleeding, infection, visceral injury, pain, anesthetic risk, potential need for additional surgery or procedure. The patient understands and would like to proceed. Description: The patient was taken to the operating room and placed supine on the operating table. Gen. anesthesia was performed. The abdomen was prepped with ChloraPrep and draped in a standard surgical manner. A supraumbilical incision was made through which a veress needle was inserted and a pneumoperitoneum was created. A visualized 5 mm trocar was inserted and the laparoscope was intr oduced. In the left lower quadrant a 5 mm trocar was inserted. In the suprapubic region a 12 mm trocar was inserted. The appendix was identified and appeared inflamed consistent with acute appendicitis. There was no clear evidence of perforation or periappendiceal abscess. The mesoappendix was bluntly from the appendix. The mesoappendix was controlled using several clips and it was divided. The appendix was then amputated off the cecum using an Endo [id number] 45 stapling device. The appendix was then placed in an endoscopic bag and extracted at the suprapubic incision site. The fascia there was closed with 0 Vicryl and infiltrated with half percent Marcaine with epinephrine. The RLQ was visualized and the staple line appeared well intact and hemostasis was good. No other abnormalities were identified grossly. The remaining ports were removed and the pneumoperitoneum was relieved. The skin at all incision sites was closed with 4-0 Monocryl. Steri-Strips and dressings were applied. The patient tolerated the procedure well and was sent to the recovery room in stable condition. At the end of the case all counts were correct. KATHLEEN CLARK MD Jun 22, 2019 14:43
[2019-06-22] MEDS ORDERED: HYDROcodone/APAP 5/325MG 1 TAB TABLET PO PRN ×2 (14:45→14:49)
[2019-06-22] MEDS ORDERED: SEVOFLURANE 61 TO 120 MINUTES. IH ONE (14:54)
[2019-06-22] MEDS: MORPHINE SULFATE 2 MG/ML VIAL. IV PRN ×2 (15:38→15:50)
[2019-06-22] MEDS ORDERED: MORPHINE SULFATE 4 MG/ML VIAL. IV PRN (16:00)
[2019-06-22] MEDS ORDERED: ENOXAPARIN 40 MG/0.4 ML SYRINGE. SQ SCH (16:00)
--- NOTE | 2019-06-22 21:00 | NUR ---
at bedside. denies nausea she is rating her pain a "2" abdominal area. she is complaining of a sore throat --"8" ice is helping. she was given a pitcher of water, ice chips and saltines . lap site dressings have a moderate amount of drainage
[2019-06-23 03:02] VITALS: BP 111/60
[2019-06-23 07:00] VITALS: BP 125/61
--- NOTE | 2019-06-23 08:31 | PDOC ---
PROGRESS NOTES Chief Complaint Chief Complaint A/P: Abdominal pain - looks to be early appendicitis. Given empiric antibiotics, pain control. Surgery consulted. Only previously had a flex sig and has been using c ologard. No colonoscopy previously. S/p lap appendectomy on 06/22 Hypercalcemia - 10.5. Will give IVF. Repeat labs in AM. Hold thiazide diuretic for now HTN - hold thiazide, cont losartan FEN - NPO PPX - lovenox post op FULL CODE Dispo - inpatient for acute appendicitis History of Present Illness History of Present Illness Ms So is a 73-year-old female w/ PMHx HTN, smoker who presents with right lower abdominal pain and bloating which seems to occur yesterday evening. P atient reports some associated nausea. Denies trauma. Denies fever or chills. Patient reports pain is worse with standing and with ambulation. Reports some improvement with rest. Reports last PO at approximately 1830 last night. Pain radiates from umbilicus to RLQ. CT abdomen with concern for early appendicitis. S/p laparascopic appendectomy on 06/22/19. Feeling much better, ambulating, passing flatus. Pathology pending. She is anxious to leave. Pain much better today. Vitals Vitals Vital Signs Date Time Temp Pulse Resp B/P (MAP) Pulse Ox O2 Delivery O2 Flow Rate FiO2 06/23/19 07:00 97.6 68 18 125/61 (82) 96 Room Air 97.6 06/22/19 15:10 8 Physical Exam General: Alert, Oriented X3, Cooperative, No acute distress Heart: Regular rate, Normal S1, Normal S2, No murmurs Abdomen: Normal bowel sounds, Soft, No hepatosplenomegaly, No masses, Other Extremities: No clubbing, No cyanosis, No edema, Normal pulses, No tenderness/swelling Skin: No rashes, No breakdown, No significant lesion Assessment and Plan Assessmemt and Plan Problems Medical Problems: (1) Acute appendicitis Status: Acute Comment Review of Relevant I have reviewed the following items avis (where applicable) has been applied. Labs Laboratory Tests Test 06/22/19 01:31 06/22/19 01:40 Urine Collection Type Unknown Urine Color Yellow Urine Clarity Clear Urine pH 6.0 Urine Specific [place] 1.015 Urine Protein Negative mg/dL (NEG-TRACE) Urine Glucose (UA) Negative mg/dL (NEG) Urine Ketones (Stick) 15 mg/dL (NEG) Urine Blood Negative (NEG) Urine Nitrite Negative (NEG) Urine Bilirubin Negative (NEG) Urine Urobilinogen Dipstick 0.2 mg/dL (0.2 mg/dL) Urine Leukocyte Esterase Trace (NEG) Urine RBC 0 /HPF (0-2) Urine WBC 1-4 /HPF (0-4) Urine Squamous Epithelial Cells Few /LPF Urine Bacteria 0 /HPF (0-FEW) Urine Hyaline Casts Few /HPF Urine Mucus Mod /LPF White Blood Count 10.3 x10^3/uL (4.0-11.0) Red Blood Count 4.95 x10^6/uL (3.50-5.40) Hemoglobin 16.1 g/dL (12.0-15.5) Hematocrit 46.8 % (36.0-47.0) Mean Corpuscular Volume 95 fL (79-100) Mean Corpuscular Hemoglobin 33 pg (25-35) Mean Corpuscular Hemoglobin Concent 34 g/dL (31-37) Red Cell Distribution Width 13.5 % (11.5-14.5) Platelet Count 234 x10^3/uL (140-400) Neutrophils (%) (Auto) 78 % (31-73) Lymphocytes (%) (Auto) 15 % (24-48) Monocytes (%) (Auto) 6 % (0-9) Eosinophils (%) (Auto) 1 % (0-3) Basophils (%) (Auto) 1 % (0-3) Neutrophils # (Auto) 8.0 x10^3/uL (1.8-7.7) Lymphocytes # (Auto) 1.6 x10^3/uL (1.0-4.8) Monocytes # (Auto) 0.6 x10^3/uL (0.0-1.1) Eosinophils # (Auto) 0.1 x10^3/uL (0.0-0.7) Basophils # (Auto) 0.1 x10^3/uL (0.0-0.2) Sodium Level 144 mmol/L (136-145) Potassium Level 4.1 mmol/L (3.5-5.1) Chloride Level 105 mmol/L (98-107) Carbon Dioxide Level 31 mmol/L (21-32) Anion Gap 8 (6-14) Blood Urea Nitrogen 16 mg/dL (7-20) Creatinine 0.8 mg/dL (0.6-1.0) Estimated GFR (Cockcroft-Gault) 70.5 BUN/Creatinine Ratio 20 (6-20) Glucose Level 113 mg/dL (70-99) Lactic Acid Level 0.9 mmol/L (0.4-2.0) Calcium Level 10.5 mg/dL (8.5-10.1) Total Bilirubin 1.1 mg/dL (0.2-1.0) Aspartate Amino Transf (AST/SGOT) 13 U/L (15-37) Alanine Aminotransferase (ALT/SGPT) 19 U/L (14-59) Alkaline Phosphatase 81 U/L (46-116) Total Protein 7.8 g/dL (6.4-8.2) Albumin 4.2 g/dL (3.4-5.0) Albumin/Globulin Ratio 1.2 (1.0-1.7) Lipase 134 U/L (73-393) Medications Current Medications Sodium Chloride 1,000 ml @ 1,000 mls/hr 1X ONCE IV Last administered on 06/22/19at 01:58; Start 06/22/19 at 02:00; Stop 06/22/19 at 02:59; Status DC Ketorolac Tromethamine (Toradol 15mg Vial) 10 mg 1X ONCE IVP Last administered on 06/22/19at 02:01; Start 06/22/19 at 02:00; Stop 06/22/19 at 02:01; Status DC Ondansetron HCl (Zofran) 4 mg 1X ONCE IVP Last administered on 06/22/19at 02:01; Start 06/22/19 at 02:00; Stop 06/22/19 at 02:01; Status DC Famotidine (Pepcid Vial) 20 mg 1X ONCE IVP Last administered on 06/22/19at 02:00; Start 06/22/19 at 02:00; Stop 06/22/19 at 02:01; Status DC Iohexol (Omnipaque 240 Mg/ml) 50 ml 1X ONCE PO ; Start 06/22/19 at 03:00; Stop 06/22/19 at 03:01; Status DC Iohexol (Omnipaque 300 Mg/ml) 75 ml 1X ONCE IV ; Start 06/22/19 at 03:00; Stop 06/22/19 at 03:01; Status Cancel Info (CONTRAST GIVEN -- Rx MONITORING) 1 each PRN DAILY PRN MC SEE COMMENTS; Start 06/22/19 at 02:30; Stop 06/24/19 at 02:29 Ondansetron HCl (Zofran) 4 mg PRN Q8HRS PRN IV NAUSEA/VOMITING 1ST CHOICE Last administered on 06/22/19at 11:27; Start 06/22/19 at 04:30; Stop 06/23/19 at 04:29; Status DC Fentanyl Citrate (Fentanyl 2ml Vial) 50 mcg PRN Q2HRS PRN IV SEVERE PAIN 7-10 Last administered on 06/22/19at 10:46; Start 06/22/19 at 04:30; Stop 06/22/19 at 15:57; Status DC Sodium Chloride 1,000 ml @ 100 mls/hr 1X ONCE IV Last administered on 06/22/19at 05:40; Start 06/22/19 at 05:00; Stop 06/22/19 at 14:59; Status DC Piperacillin Sod/ Tazobactam Sod 3.375 gm/Sodium Chloride 50 ml @ 100 mls/hr 1X ONCE IV Last administered on 06/22/19at 06:02; Start 06/22/19 at 05:00; Stop 06/22/19 at 05:29; Status DC Ondansetron HCl (Zofran) 4 mg PRN Q6HRS PRN IV NAUSEA/VOMITING; Start 06/22/19 at 08:30; Stop 06/23/19 at 08:29; Status DC Fentanyl Citrate (Fentanyl 2ml Vial) 25 mcg PRN Q5MIN PRN IV MILD PAIN 1-3; Start 06/22/19 at 08:30; Stop 06/23/19 at 08:29; Status DC Fentanyl Citrate (Fentanyl 2ml Vial) 50 mcg PRN Q5MIN PRN IV MODERATE TO SEVERE PAIN; Start 06/22/19 at 08:30; Stop 06/23/19 at 08:29; Status DC Morphine Sulfate (Morphine Sulfate) 1 mg PRN Q10MIN PRN IV SEVERE PAIN 7-10 Last administered on 06/22/19at 15:50; Start 06/22/19 at 08:30; Stop 06/23/19 at 08:29; Status DC Ringer's Solution 1,000 ml @ 30 mls/hr Q24H IV ; Start 06/22/19 at 08:23; Stop 06/22/19 at 20:22; Status DC Hydromorphone HCl (Dilaudid) 0.5 mg PRN Q10MIN PRN IV SEV PAIN, Second choice; Start 06/22/19 at 08:30; Stop 06/23/19 at 08:29; Status DC Prochlorperazine Edisylate (Compazine) 5 mg PACU PRN PRN IV NAUSEA, MRX1; Start 06/22/19 at 08:30; Stop 06/23/19 at 08:29; Status DC Bupivacaine HCl/ Epinephrine Bitart (Sensorcain-Epi 0.5%-1:[id number] Mpf) 30 ml 1X ONCE INJ Last administered on 06/22/19at 14:09; Start 06/22/19 at 08:30; Stop 06/22/19 at 08:31; Status DC Prochlorperazine Edisylate (Compazine) 5 mg PRN Q6HRS PRN IV NAUSEA/VOMITING; Start 06/22/19 at 12:45 Propofol 20 ml @ As Directed STK-MED ONCE IV ; Start 06/22/19 at 12:36; Stop 06/22/19 at 12:37; Status DC Dexamethasone Sodium Phosphate (Decadron) 4 mg STK-MED ONCE .ROUTE ; Start 06/22/19 at 12:36; Stop 06/22/19 at 12:37; Status DC Famotidine (Pepcid Vial) 20 mg STK-MED ONCE .ROUTE ; Start 06/22/19 at 12:36; Stop 06/22/19 at 12:37; Status DC Lidocaine HCl (Lidocaine Pf 2% Vial) 5 ml STK-MED ONCE .ROUTE ; Start 06/22/19 at 12:36; Stop 06/22/19 at 12:37; Status DC Ondansetron HCl (Zofran) 4 mg STK-MED ONCE .ROUTE ; Start 06/22/19 at 12:36; Stop 06/22/19 at 12:37; Status DC Rocuronium [place] (Zemuron) 50 mg STK-MED ONCE .ROUTE ; Start 06/22/19 at 12:36; Stop 06/22/19 at 12:37; Status DC Losartan Potassium (Cozaar) 100 mg DAILY PO ; Start 06/22/19 at 13:00 Enoxaparin Sodium (Lovenox 40mg Syringe) 40 mg Q24H SQ ; Start 06/22/19 at 16:00 Scopolamine (Transderm-Scop) 1 patch STK-MED ONCE TD ; Start 06/22/19 at 12:51; Stop 06/22/19 at 12:52; Status DC Scopolamine (Transderm-Scop) 1 patch 1X ONCE TD Last administered on 06/22/19at 12:59; Start 06/22/19 at 09:00; Stop 06/22/19 at 12:57; Status DC Piperacillin Sod/ Tazobactam Sod 3.375 gm/Sodium Chloride 50 ml @ 100 mls/hr 1X ONCE IV ; Start 06/22/19 at 13:30; Stop 06/22/19 at 13:59; Status DC Succinylcholine Chloride (Anectine) 200 mg STK-MED ONCE .ROUTE ; Start 06/22/19 at 13:50; Stop 06/22/19 at 13:50; Status DC Ephedrine Sulfate (ePHEDrine PF IN SALINE SYRINGE) 50 mg STK-MED ONCE IV ; Start 06/22/19 at 14:07; Stop 06/22/19 at 14:07; Status DC Fentanyl Citrate (Fentanyl 2ml Vial) 100 mcg STK-MED ONCE .ROUTE ; Start 1 at 14:13; Stop 06/22/19 at 14:13; Status DC Glycopyrrolate (Robinul) 1 mg STK-MED ONCE .ROUTE ; Start 06/22/19 at 14:35; Stop 06/22/19 at 14:35; Status DC Neostigmine Methylsulfate (Neostigmine Methylsulfate) 5 mg STK-MED ONCE .ROUTE ; Start 06/22/19 at 14:35; Stop 06/22/19 at 14:35; Status DC Acetaminophen/ Hydrocodone Bitart (Lortab 5/325) 1 tab PRN Q4HRS PRN PO PAIN; Start 06/22/19 at 14:45; Stop 06/22/19 at 14:49; Status DC Acetaminophen/ Hydrocodone Bitart (Lortab 5/325) 2 tab PRN Q4HRS PRN PO PAIN; Start 06/22/19 at 14:49 Sevoflurane (Ultane) 60 ml STK-MED ONCE IH ; Start 06/22/19 at 14:54; Stop 06/22/19 at 14:54; Status DC Morphine Sulfate (Morphine Sulfate) 4 mg PRN Q2HR PRN IV PAIN; Start 06/22/19 at 16:00 Active Scripts Active Reported Losartan-Hctz 100-12.5 Mg Tab (Losartan/Hydrochlorothiazide) 1 Each Tablet 1 Tab PO DAILY Vitals/I & O Vital Sign - Last 24 Hours 06/22/19 06/22/19 06/22/19 06/22/19 08:39 10:46 11:00 11:16 Temp 97.9 97.9 Pulse 70 Resp 16 B/P (MAP) 144/62 (89) Pulse Ox 94 95 94 O2 Delivery Room Air Room Air 06/22/19 06/22/19 06/22/19 06/22/19 13:00 13:02 14:55 15:10 Temp 98.2 98.3 98.2 98.3 Pulse 74 80 90 82 Resp 15 16 16 B/P (MAP) 130/59 154/67 154/61 150/51 Pulse Ox 94 100 O2 Delivery Room Air Simple Mask Simple Mask O2 Flow Rate 8 8 06/22/19 06/22/19 06/22/19 06/22/19 15:25 15:38 15:40 15:50 Pulse 77 71 Resp 16 16 16 16 B/P (MAP) 146/68 144/60 Pulse Ox 94 95 94 95 O2 Delivery Room Air Room Air Room Air Room Air 06/22/19 06/22/19 06/22/19 06/22/19 16:10 16:20 16:25 16:40 Temp 97.5 97.5 Pulse 74 75 71 Resp 18 18 18 B/P (MAP) 130/59 (82) 133/58 (83) 130/56 (80) Pulse Ox 93 89 92 O2 Delivery Room Air Room Air Room Air Room Air 06/22/19 06/22/19 06/22/19 06/22/19 16:55 17:25 17:55 18:43 Pulse 74 71 74 76 Resp 18 18 18 18 B/P (MAP) 133/59 (83) 132/63 (86) 133/60 (84) 131/61 (84) Pulse Ox 94 94 93 96 O2 Delivery Room Air Room Air Room Air Room Air 06/22/19 06/22/19 06/22/19 06/23/19 19:30 20:00 23:00 03:02 Temp 97.5 98.4 98.2 97.5 98.4 98.2 Pulse 74 73 77 Resp 16 16 20 B/P (MAP) 121/62 (81) 109/58 (75) 111/60 (77) Pulse Ox 95 97 95 O2 Delivery Room Air Room Air 06/23/19 07:00 Temp 97.6 97.6 Pulse 68 Resp 18 B/P (MAP) 125/61 (82) Pulse Ox 96 O2 Delivery Room Air Intake and Output 06/22/19 06/22/19 06/23/19 15:00 23:00 07:00 Intake Total 750 ml 650 ml 700 ml Output Total 260 ml 50 ml 500 ml Balance 490 ml 600 ml 200 ml MIGUEL LYNN MD Jun 23, 2019 08:31
[2019-06-23 08:40] VITALS: BP 125/61
[2019-06-23] MEDS: LOSARTAN POTASSIUM 50 MG TABLET. PO SCH (08:40)
[2019-06-23] MEDS ORDERED: HYDR-2761 PO (09:29)
--- NOTE | 2019-06-23 09:37 | PDOC ---
SURGICAL PROGRESS NOTE Subjective tolerating diet right rib pain no n/v urinating ambulating Vital Signs Vital Signs Date Time Temp Pulse Resp B/P (MAP) Pulse Ox O2 Delivery O2 Flow Rate FiO2 06/23/19 08:40 68 125/61 06/23/19 07:00 97.6 18 96 Room Air 97.6 06/22/19 15:10 8 I&O Intake and Output 06/23/19 06:59 Intake Total 2100 ml Output Total 810 ml Balance 1290 ml Intake Oral 850 ml IV Total 1250 ml Output Urine Total 800 ml Estimated Blood Loss 10 ml # Voids 2 General: Alert, Oriented X3, Cooperative, No acute distress Abdomen: Soft, Other (lap dressings dry) Labs Laboratory Tests Test 06/22/19 01:31 06/22/19 01:40 Urine Collection Type Unknown Urine Color Yellow Urine Clarity Clear Urine pH 6.0 Urine Specific [place] 1.015 Urine Protein Negative mg/dL (NEG-TRACE) Urine Glucose (UA) Negative mg/dL (NEG) Urine Ketones (Stick) 15 mg/dL (NEG) Urine Blood Negative (NEG) Urine Nitrite Negative (NEG) Urine Bilirubin Negative (NEG) Urine Urobilinogen Dipstick 0.2 mg/dL (0.2 mg/dL) Urine Leukocyte Esterase Trace (NEG) Urine RBC 0 /HPF (0-2) Urine WBC 1-4 /HPF (0-4) Urine Squamous Epithelial Cells Few /LPF Urine Bacteria 0 /HPF (0-FEW) Urine Hyaline Casts Few /HPF Urine Mucus Mod /LPF White Blood Count 10.3 x10^3/uL (4.0-11.0) Red Blood Count 4.95 x10^6/uL (3.50-5.40) Hemoglobin 16.1 g/dL (12.0-15.5) Hematocrit 46.8 % (36.0-47.0) Mean Corpuscular Volume 95 fL (79-100) Mean Corpuscular Hemoglobin 33 pg (25-35) Mean Corpuscular Hemoglobin Concent 34 g/dL (31-37) Red Cell Distribution Width 13.5 % (11.5-14.5) Platelet Count 234 x10^3/uL (140-400) Neutrophils (%) (Auto) 78 % (31-73) Lymphocytes (%) (Auto) 15 % (24-48) Monocytes (%) (Auto) 6 % (0-9) Eosinophils (%) (Auto) 1 % (0-3) Basophils (%) (Auto) 1 % (0-3) Neutrophils # (Auto) 8.0 x10^3/uL (1.8-7.7) Lymphocytes # (Auto) 1.6 x10^3/uL (1.0-4.8) Monocytes # (Auto) 0.6 x10^3/uL (0.0-1.1) Eosinophils # (Auto) 0.1 x10^3/uL (0.0-0.7) Basophils # (Auto) 0.1 x10^3/uL (0.0-0.2) Sodium Level 144 mmol/L (136-145) Potassium Level 4.1 mmol/L (3.5-5.1) Chloride Level 105 mmol/L (98-107) Carbon Dioxide Level 31 mmol/L (21-32) Anion Gap 8 (6-14) Blood Urea Nitrogen 16 mg/dL (7-20) Creatinine 0.8 mg/dL (0.6-1.0) Estimated GFR (Cockcroft-Gault) 70.5 BUN/Creatinine Ratio 20 (6-20) Glucose Level 113 mg/dL (70-99) Lactic Acid Level 0.9 mmol/L (0.4-2.0) Calcium Level 10.5 mg/dL (8.5-10.1) Total Bilirubin 1.1 mg/dL (0.2-1.0) Aspartate Amino Transf (AST/SGOT) 13 U/L (15-37) Alanine Aminotransferase (ALT/SGPT) 19 U/L (14-59) Alkaline Phosphatase 81 U/L (46-116) Total Protein 7.8 g/dL (6.4-8.2) Albumin 4.2 g/dL (3.4-5.0) Albumin/Globulin Ratio 1.2 (1.0-1.7) Lipase 134 U/L (73-393) Problem List Problems Medical Problems: (1) Acute appendicitis Status: Acute Assessment/Plan s/p appy ok to al home Fu 2 weeks script e sent to pharmacy GENEVA LAM APRN Jun 23, 2019 09:36
--- NOTE | 2019-06-23 09:59 | PDOC3 ---
Discharge Summary Visit Information Date of Admission: Jun 22, 2019 Date of Discharge: Jun 23, 2019 Admitting Diagnosis: Acute appendicitis Final Diagnosis Problems Medical Problems: (1) Acute appendicitis Status: Acute Brief Hospital Course Allergies Allergies Coded Allergies Type Severity Reaction Last Updated Verified No Known Drug Allergies 06/22/19 No Vital Signs Vital Signs Date Time Temp Pulse Resp B/P (MAP) Pulse Ox O2 Delivery O2 Flow Rate FiO2 06/23/19 08:40 68 125/61 06/23/19 07:00 97.6 18 96 Room Air 97.6 06/22/19 15:10 8 Lab Results Laboratory Tests Test 06/22/19 01:31 06/22/19 01:40 Urine Collection Type Unknown Urine Color Yellow Urine Clarity Clear Urine pH 6.0 Urine Specific [place] 1.015 Urine Protein Negative mg/dL (NEG-TRACE) Urine Glucose (UA) Negative mg/dL (NEG) Urine Ketones (Stick) 15 mg/dL (NEG) Urine Blood Negative (NEG) Urine Nitrite Negative (NEG) Urine Bilirubin Negative (NEG) Urine Urobilinogen Dipstick 0.2 mg/dL (0.2 mg/dL) Urine Leukocyte Esterase Trace (NEG) Urine RBC 0 /HPF (0-2) Urine WBC 1-4 /HPF (0-4) Urine Squamous Epithelial Cells Few /LPF Urine Bacteria 0 /HPF (0-FEW) Urine Hyaline Casts Few /HPF Urine Mucus Mod /LPF White Blood Count 10.3 x10^3/uL (4.0-11.0) Red Blood Count 4.95 x10^6/uL (3.50-5.40) Hemoglobin 16.1 g/dL (12.0-15.5) Hematocrit 46.8 % (36.0-47.0) Mean Corpuscular Volume 95 fL (79-100) Mean Corpuscular Hemoglobin 33 pg (25-35) Mean Corpuscular Hemoglobin Concent 34 g/dL (31-37) Red Cell Distribution Width 13.5 % (11.5-14.5) Platelet Count 234 x10^3/uL (140-400) Neutrophils (%) (Auto) 78 % (31-73) Lymphocytes (%) (Auto) 15 % (24-48) Monocytes (%) (Auto) 6 % (0-9) Eosinophils (%) (Auto) 1 % (0-3) Basophils (%) (Auto) 1 % (0-3) Neutrophils # (Auto) 8.0 x10^3/uL (1.8-7.7) Lymphocytes # (Auto) 1.6 x10^3/uL (1.0-4.8) Monocytes # (Auto) 0.6 x10^3/uL (0.0-1.1) Eosinophils # (Auto) 0.1 x10^3/uL (0.0-0.7) Basophils # (Auto) 0.1 x10^3/uL (0.0-0.2) Sodium Level 144 mmol/L (136-145) Potassium Level 4.1 mmol/L (3.5-5.1) Chloride Level 105 mmol/L (98-107) Carbon Dioxide Level 31 mmol/L (21-32) Anion Gap 8 (6-14) Blood Urea Nitrogen 16 mg/dL (7-20) Creatinine 0.8 mg/dL (0.6-1.0) Estimated GFR (Cockcroft-Gault) 70.5 BUN/Creatinine Ratio 20 (6-20) Glucose Level 113 mg/dL (70-99) Lactic Acid Level 0.9 mmol/L (0.4-2.0) Calcium Level 10.5 mg/dL (8.5-10.1) Total Bilirubin 1.1 mg/dL (0.2-1.0) Aspartate Amino Transf (AST/SGOT) 13 U/L (15-37) Alanine Aminotransferase (ALT/SGPT) 19 U/L (14-59) Alkaline Phosphatase 81 U/L (46-116) Total Protein 7.8 g/dL (6.4-8.2) Albumin 4.2 g/dL (3.4-5.0) Albumin/Globulin Ratio 1.2 (1.0-1.7) Lipase 134 U/L (73-393) Brief Hospital Course Ms So is a 73-year-old female w/ PMHx HTN, smoker who presents with right lower abdominal pain and bloating which seems to occur yesterday evening. Patient reports some associated nausea. Denies trauma. Denies fever or chills. Patient reports pain is worse with standing and with ambulation. Reports some improvement with rest. Reports last PO at approximately 1830 last night. Pain radiates from umbilicus to RLQ. CT abdomen with concern for early appendicitis. S/p laparascopic appendectomy on 06/22/19. Feeling much better, ambulating, passing flatus. Pathology pending. She is anxious to leave. Pain much better today. 2 week f/u with surgery. Hydrocodone f or pain, will f/u pathology A/P: Abdominal pain - looks to be early appendicitis. Given empiric antibiotics, pain control. Surgery consulted. Only previously had a flex sig and has been using cologard. No colonoscopy previously. S/p lap appendectomy on 06/22 Hypercalcemia - 10.5. Will give IVF. Repeat labs in AM. Hold thiazide diuretic for now HTN - hold thiazide, cont losartan Greater than 30 minutes spent on d/c Discharge Information Condition at Discharge: Improved Follow Up: Weeks (1) Disposition/Orders: D/C to Home Scheduled Losartan/Hydrochlorothiazide (Losartan-Hctz 100-12.5 Mg Tab) 1 Each Tablet, 1 TAB PO DAILY for hypertension, #30 Ref 5 (Reported) Entered as Reported by: HAL STANFORD RN on 06/22/19557 Last Taken: Unknown Dose on 06/21/19 0800 Last Action: New Order on 06/22/19557 by HAL STANFORD RN Scheduled PRN Hydrocodone Bit/Acetaminophen (Hydrocodone-Apap 5-325 ) 1 Tab Tablet, 2 TAB PO PRN Q4HRS PRN for PAIN, #30 Ref 0 Prescribed by: Amy Montanez on 06/23/19 0929 Discontinued Medications Losartan Potassium (Losartan Potassium ) 25 Mg Tablet, 25 MG PO DAILY, (Reported) Entered as Reported by: Aleshia Mckee on 11/07/16 1621 Last Action: Discontinued on 06/22/19 05 by THERON CALVERT CHRISTOPHER S MD Jun 23, 2019 09:59
--- NOTE | 2019-06-23 10:41 | NUR ---
SW following for discharge planning. Discussed with RN, pt is from home with . RN advised no SW needs, and anticipates pt may discharge home today with self care. SW will continue to follow.
--- NOTE | 2019-06-24 18:06 | PATHOLOGY ---
[facility] Accession Number: [id number] . 01 Material submitted: . appendix - APPENDIX . 01 Clinical history: . Appendicitis . 02 Diagnosis: Appendix, laparoscopic appendectomy: - Acute appendicitis. . ([facility]; 06/24/2019) [facility] 06/24/2019 1633 Local . 02 Comment: There is no evidence of rupture. There is no evidence of malignancy. . ([facility]:mm; 06/24/2019) . 02 Electronically signed: . Servando Montero MD, Pathologist NPI- [id number] . 01 Gross description: . The specimen is received in formalin, labeled "Shepek, Fiona, appendix" and consists of a curved appendix measuring 5.8 in length and up to 1.0 in diameter with mesoappendix measuring 1.5 thick. The serosa is green-michael with adhesions. The margin is closed with a line of hung and inked black. Sectioning reveals a dilated lumen containing michael fecal material and a white fibrous tip. Car Driver sections are submitted in A1. ([facility]; 06/23/2019) [facility]U 06/23/2019 1636 Local . 02 Pathologist provided ICD-10: K35.80 . 02 CPT . 686270 Specimen Comment: A courtesy copy of this report has been sent to [phone], [phone] Specimen Comment: [phone], , Specimen Comment: Report sent to ,DR HAMMER,DR GRAY / DR CHASE Performed at: [address], [place], [place] [id number] MD Jasvir Rodrigues MD Phone: [phone] Performed at: [address] [id number] MD Servando Montero MD Phone: [phone]
== END 2019-06-23 10:22 | disposition home or self-care (01) | DRG 343 ==
LOC: ER 01:26 → 4 NORTH 04:35
PROVIDERS: ADMIT Family Medicine; ATTEND Family Medicine
PROC: 0DTJ4ZZ Resection of Appendix, Percutaneous Endoscopic Approach (ICD-10-PCS; principal; 2019-06-22 13:30)
DX: K35.890 Other acute appendicitis without perforation or gangrene (principal); I10 Essential (primary) hypertension; E83.52 Hypercalcemia; F17.210 Nicotine dependence, cigarettes, uncomplicated; Z98.51 Tubal ligation status; Z82.49 Family history of ischemic heart disease and other diseases of the circulatory system
CPT/HCPCS: 36415; 74176; 80053; 81001; 83605; 83690; 85025; 87086; 88304; 96361; 96374; 96375; A7015; J0171; J0330; J1100; J1885; J2001; J2270; J2405; J2543; J2704; J2710; J3010; J3490; J7030; 99291-25; G0378

== ENCOUNTER → 2020-11-10 | Outpatient (CLI) | payer MEDICARE ==
[~2020-11-10] MED LIST changes: +HYDR-2761 PO; +LOSA1TAB25 PO
--- NOTE | 2020-11-10 13:33 | KCIC ---
INDICATION: Screening for osteopenia/osteoporosis. Postmenopausal evaluation. COMPARISON: None. TECHNIQUE: Bone densitometry was performed through the lumbar spine and proximal femur. IMPRESSION: Lumbar Spine: BMD: 0.62 T-Score: -3.9 Range: Osteoporotic Proximal Femur: BMD: 0.64 T-Score: -2.5 Range: Osteoporotic World Health Organization Criteria for Bone Density: T-Score: > -1.0: Normal Range < -1.0 to -2.5: Osteopenic Range < -2.5: Osteoporotic Range Electronically signed by: Tom Blanc MD (11/10/2020 1:31 PM) [id number]
--- NOTE | 2020-11-10 15:11 | KCIC ---
EXAM: CT Lung Cancer Screening Chest without IV contrast INDICATION: Lung cancer screening. Smoker 35 year pack a day's history smoking TECHNIQUE: Multi-detector row low dose CT images were acquired from the thoracic inlet through the up per abdomen without the use of IV contrast. Scanning parameters were adjusted for evaluation of lung parenchyma for developing lung carcinoma with limited patient exposure. Sagittal and coronal images w ere acquired from the transaxial data. All CT scans performed at this facility utilize dose optimizat ion techniques as appropriate to the exam, including the following: Automated exposure control and ad justment of the mA and/or KV according to patient size (this includes techniques or standardized prot ocols for targeted exams where dose is indication/reason for exam). COMPARISON: Abdomen pelvis CT without IV contrast of 06/22/2019 FINDINGS: The absence of IV contrast limits evaluation of soft tissue pathology. CARDIOVASCULAR: Scattered arterial calcifications. This includes coronary arteries. MEDIASTINUM & LEANNE: No adenopathy or masses. LUNGS: Calcified granuloma in the superior left upper lobe measuring 5 mm is present. Otherwise no no dules, masses or consolidation. PLEURAL SPACE: No pleural effusions. No pneumothorax. OSSEOUS & SOFT TISSUES: Unremarkable. ABDOMEN: The visualized portions of the upper abdomen are normal. Lung-RADS ASSESSMENT: LUNG-RADS CATEGORY 2: Benign Appearance or Behavior/Nodules with a very low likelihood of becoming a clinically active cancer due to size or lack of growth. -- Continue annual screening with LDCT in 12 months. E2: Soft tissue structures and skeletal structures other than the lungs contain benign findings that do not require additional follow up IMPRESSION: No evidence of a pulmonary malignancy. There is atherosclerosis including coronary artery disease. Electronically signed by: Hernandez Sylvester MD (11/10/2020 3:09 PM) [id number]
== END ==
LOC: KCIC DEXA 12:31
PROVIDERS: ATTEND Internal Medicine
DX: Z78.0 Asymptomatic menopausal state (principal); F17.210 Nicotine dependence, cigarettes, uncomplicated
CPT/HCPCS: 71271; 77080